=== PATIENT | female | born 1985 | race Caucasian/White ===

== ENCOUNTER 2019-02-23 00:03 | Emergency (ER) | payer MEDICAID ==
[~2019-02-23] VITALS: Ht 162.6 cm; Wt 90.7 kg
[2019-02-23 00:15] VITALS: BP 119/70
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
--- NOTE | 2019-02-23 00:45 | NUR ---
PATIENT MEDICALLY CLEARED AND RELEASED IN CUSTODY IN STABLE CONDITION. ORIGINAL PRE-BOOK FORM GIVEN TO [facility] OFFICER.
== END 2019-02-23 00:45 ==
LOC: MED 00:03
DX: M54.2 Cervicalgia (principal); Z02.89 Encounter for other administrative examinations; V89.2XXA Person injured in unspecified motor-vehicle accident, traffic, initial encounter; Y93.89 Activity, other specified; Y92.411 Interstate highway as the place of occurrence of the external cause; Y99.8 Other external cause status
CPT/HCPCS: 71045; 99283